=== PATIENT | female | born 1980 | race Caucasian/White ===

== ENCOUNTER → 2018-03-09 | Outpatient (CLI) | payer OTHER ==
[~2018-03-09] MED LIST: AMOXICILLIN500 MG PO; ATARAX25 MG PO; BACTRIM DS 8001 TA1 PO; CATAFLAM50 MG PO; CIPROFLOXACIN500 MG PO; CLINDAMYCIN HC300 MG PO; CORDROL20 MG PO; DEPAKENE250 M2 PO; DIFLUCAN150 MG PO; HYDROCODONE BIT1 T11 PO; LOMOTIL 0.025 M1 TA1 PO; METFORMIN500 MG PO; MOTRIN600 MG PO; MOTRIN800 MG PO; NAPROSYN500 MG PO; NORCO 5-325 TA1 EACH PO; NORVASC5 MG PO; PERCOCET 325 MG1 TA2 PO; PREDNISONE10 MG PO; TRAMADOL HCL50 MG PO; ULTRAM50 MG PO; VALIUM10 MG PO; VICO10300 PO; VICODIN 5/500 505 MG PO; VITAMIN D1000 IU PO; WELLBUTRIN XL300 MG PO; ZESTRIL10 MG PO; ZITHROMAX250 MG PO
== END | disposition home or self-care (01) ==
LOC: RAD 10:58
DX: R11.10 Vomiting, unspecified (principal); R19.7 Diarrhea, unspecified; I10 Essential (primary) hypertension; E11.9 Type 2 diabetes mellitus without complications; F17.200 Nicotine dependence, unspecified, uncomplicated

== ENCOUNTER 2018-03-20 20:22 | Emergency (ER) | payer OTHER ==
[~2018-03-20] VITALS: Ht 167.6 cm; Wt 99.8 kg
[2018-03-20 20:46] LABS: BASO % 0.2 % (0.0-1.0); EOS # 0.2 10*3/uL (0.0-0.4); EOS % 0.9 % (1.0-4.0); HEMATOCRIT 38.7 % (37.0-47.0); HEMOGLOBIN 13.2 g/dl (12.0-16.0); LYMPH # 2.8 10*3/uL (1.3-4.4); LYMPH % 15.3 % (27.0-41.0); MEAN CELL VOLUME 90.4 fl (81.0-99.0); MEAN CORPUSCULAR HGB 30.8 pg (27.0-31.0); MEAN CORPUSCULAR HGB CONC 34.1 g/dl (33.0-37.0); MEAN PLATELET VOLUME 9.2 fl (9.6-12.3); MONO # 0.8 10*3/uL (0.1-1.0); MONO % 4.7 % (3.0-9.0); NEUT # 14.1 10*3/uL (2.3-7.9); NEUT % 78.2 % (47.0-73.0); PLATELET COUNT AUTOMATED 259 10*3/uL (130-400); RED BLOOD COUNT 4.28 10*6/uL (4.10-5.10); RED CELL DISTRI WIDTH 13.4 % (0-14.5)
[2018-03-20 20:59] LABS: BUN 6 mg/dl (7-24); CHLORIDE 100 mmol/L (98-107); CREATININE 0.85 mg/dL (0.55-1.02); POTASSIUM 3.4 mmol/L (3.5-5.1); SODIUM 134 mmol/L (136-145)
[2018-03-20 22:48] VITALS: BP 142/80
[2018-03-21] MEDS ORDERED: CLINDAMYCIN HC300 MG PO (12:05)
== END 2018-03-20 22:37 | disposition home or self-care (01) ==
LOC: ED 20:22
PROVIDERS: Emergency Medicine Emergency Medical Services
DX: K04.7 Periapical abscess without sinus (principal); Z88.8 Allergy status to other drugs, medicaments and biological substances

== ENCOUNTER 2018-08-09 22:04 | Emergency (ER) | payer OTHER ==
[~2018-08-09] VITALS: Ht 160 cm; Wt 108.9 kg
--- NOTE | ~2018-08-09 | EKG ---
[place], [place] ELECTROCARDIOGRAM REPORT NAME: CHRISTINA BOB UNIT #: [id number] ROOM: DOCTOR: EPIPHANY DRAFT REPORT BIRTHDATE: [birth year] [facility] Test Date: 2018-08-09 Test Time: 22:53:38 Pat Name: CHRISTINA BOB Department: ER Room: 18 Gender: F Recreation Professor: Suzette Woodward : 1980 Requested By: MERCEDES DOUGLAS Order Number: [id number] Reading MD: Santiago Sebastian MD Measurements Intervals [place] Rate: 93 P: 19 DC: 177 QRS: 26 QRSD: 77 T: 29 QT: 423 QTc: 527 Interpretive Statements Sinus rhythm Low voltage, precordial leads Probable anteroseptal infarct, old Prolonged QT interval Electronically Signed On 08-10-2018 13:56:55 PDT by Santiago Sebastian MD CM:[email or web address]:ELECTROCARDIOGRAM REPORT [id number] MERCEDES SWEET DRAFT REPORT MERCEDES DOUGLAS DO
[2018-08-09 22:27] LABS: BILIRUBIN NEGATIVE (NEGATIVE); BLOOD NEGATIVE (NEGATIVE); CLARITY CLEAR (CLEAR); COLOR YELLOW (YELLOW); GLUCOSE NEGATIVE (NEGATIVE); KETONE NEGATIVE (NEGATIVE); LEUKO ESTERASE NEGATIVE (NEGATIVE); NITRITE NEGATIVE (NEGATIVE); SPECIFIC GRAVITY >= 1.030 (1.005-1.030)
[2018-08-09 22:37] LABS: BASO % 0.2 % (0.0-1.0); EOS # 0.2 10*3/uL (0.0-0.4); EOS % 1.3 % (1.0-4.0); HEMATOCRIT 40.2 % (37.0-47.0); LYMPH % 24.7 % (27.0-41.0); MEAN CELL VOLUME 89.7 fl (81.0-99.0); MEAN CORPUSCULAR HGB 31.3 pg (27.0-31.0); MEAN CORPUSCULAR HGB CONC 34.8 g/dl (33.0-37.0); MEAN PLATELET VOLUME 9.5 fl (9.6-12.3); MONO # 0.6 10*3/uL (0.1-1.0); MONO % 5.1 % (3.0-9.0); NEUT # 8.4 10*3/uL (2.3-7.9); NEUT % 68.4 % (47.0-73.0); PLATELET COUNT AUTOMATED 288 10*3/uL (130-400); RED BLOOD COUNT 4.48 10*6/uL (4.10-5.10); RED CELL DISTRI WIDTH 12.7 % (0-14.5); WHITE BLOOD COUNT 12.3 10*3/uL (4.8-10.8)
[2018-08-09 22:43] LABS: EPITHELIAL CELLS 15-20
[2018-08-09 22:44] LABS: WBC 0-2 wbc/hpf (0-5)
[2018-08-09 22:47] LABS: ACT PARTIAL THROMBO TIME 24.6 SECONDS (20.8-31.5); INTERNATIONAL NORM RATIO 0.9 (2.0-3.5)
[2018-08-09 22:54] LABS: ALBUMIN 3.7 gm/dl (3.1-4.5); ALKALINE PHOSPHATASE 78 U/L (45-117); BUN 10 mg/dl (7-24); CHLORIDE 103 mmol/L (98-107); CREATININE 0.81 mg/dL (0.55-1.02); POTASSIUM 3.9 mmol/L (3.5-5.1); SGOT/AST 34 IU/L (3-35); SGPT/ALT 47 U/L (12-78); SODIUM 137 mmol/L (136-145); TOTAL PROTEIN 8.4 gm/dL (6.4-8.2)
[2018-08-09 22:58] LABS: BETA-HCG, QUANT < 1.0 mIU/mL (1-3); TROPONIN I < 0.015 ng/ml (<0.045)
[2018-08-09] MEDS ORDERED: PREDNISONE50 MG PO (23:39)
[2018-08-09 23:58] VITALS: BP 136/87
== END 2018-08-10 00:08 | disposition home or self-care (01) ==
LOC: ED 22:04
PROVIDERS: Student in an Organized Health Care Education/Training Program
DX: R07.81 Pleurodynia (principal); Z88.8 Allergy status to other drugs, medicaments and biological substances

== ENCOUNTER 2020-01-12 13:53 | Inpatient (IN) | payer OTHER ==
[~2020-01-12] VITALS: Ht 160 cm; Wt 102.1 kg
[~2020-01-12 13:53] MED LIST changes: +PREDNISONE50 MG PO
[2020-01-12 14:08] VITALS: BP 154/97
[2020-01-12 14:50] LABS: BASO % 0.3 % (0.0-1.0); EOS % 0.1 % (1.0-4.0); HEMATOCRIT 39.1 % (37.0-47.0); HEMOGLOBIN 13.2 g/dl (12.0-16.0); LYMPH # 0.3 10*3/uL (1.3-4.4); LYMPH % 2.7 % (27.0-41.0); MEAN CELL VOLUME 90.5 fl (81.0-99.0); MEAN CORPUSCULAR HGB 30.6 pg (27.0-31.0); MEAN CORPUSCULAR HGB CONC 33.8 g/dl (33.0-37.0); MEAN PLATELET VOLUME 9.2 fl (9.6-12.3); MONO # 0.6 10*3/uL (0.1-1.0); MONO % 6.1 % (3.0-9.0); NEUT # 9.4 10*3/uL (2.3-7.9); PLATELET COUNT AUTOMATED 241 10*3/uL (130-400); RED BLOOD COUNT 4.32 10*6/uL (4.10-5.10); RED CELL DISTRI WIDTH 13.4 % (0-14.5); WHITE BLOOD COUNT 10.4 10*3/uL (4.8-10.8)
[2020-01-12 14:53] LABS: ABG BASE EXCESS -0.9 mmol/L (-2.0-2.0); ARTERIAL BLOOD GAS PH 7.421 (7.35-7.45)
[2020-01-12 15:20] LABS: ALBUMIN 3.7 gm/dl (3.1-4.5); ALKALINE PHOSPHATASE 93 U/L (45-117); BUN 7 mg/dl (7-24); CHLORIDE 103 mmol/L (98-107); CREATININE 0.86 mg/dL (0.55-1.02); POTASSIUM 4.1 mmol/L (3.5-5.1); SGOT/AST 58 IU/L (3-35); SGPT/ALT 55 U/L (12-78); SODIUM 135 mmol/L (136-145); TOTAL PROTEIN 8.8 gm/dL (6.4-8.2)
[2020-01-12 16:00] VITALS: BP 159/98
--- NOTE | 2020-01-12 16:00 | NUR ---
A 39, admitted to , under the services of STEFANIE Linder DO with a diagnosis of COPD EXACERBATION. Chief complaint is SHORTNESS OF BREATH. Patient arrived via stretcher from ER. Monitor applied. Initial assessment completed. Vital signs taken and recorded. STEFANIE LINDER DO notified of admission to the unit. Orders received. See assessment for past medical history, medications and allergies. Patient and/or family oriented to unit. [address] visitation policy reviewed. Clothing/patient valuable form completed. URBAN ARTHUR
[2020-01-12 20:00] VITALS: BP 140/101
--- NOTE | 2020-01-12 21:33 | NUR ---
INFORMED KATIE PATIENT IS COUGHING. ORDERS IN PLACE PER WISHES.
--- NOTE | 2020-01-12 22:03 | NUR ---
PATIENT MEDICATED WITH TESSALON PERLE FOR COUGH. WILL MONITOR
[2020-01-13] VITALS: BP 133/82
--- NOTE | 2020-01-13 02:40 | NUR ---
OFFERED PATIENT WARM TEA TO SOOTHE THROAT, PATIENT REFUSED. PATIENT DID ACCEPT POPSICLES.
--- NOTE | 2020-01-13 02:42 | NUR ---
PATIENT MEDICATED WITH TESSALON PERLE FOR COUGH. WILL MONITOR
--- NOTE | 2020-01-13 03:42 | NUR ---
TESSALON PERLE EFFECTIVE FOR COUGH
--- NOTE | 2020-01-13 05:16 | NUR ---
INFORMED THAT TESSALON PERLES ONLY EFFECTIVE FOR A COUPLE OF HOURS. STATED TO PLACE ROBITUSSIN ORDER
--- NOTE | 2020-01-13 05:45 | NUR ---
PATIENT GIVEN ROBITUSSIN FOR COUGH. WILL MONITOR
[2020-01-13 06:07] LABS: BASO % 0.1 % (0.0-1.0); HEMATOCRIT 38.9 % (37.0-47.0); HEMOGLOBIN 12.8 g/dl (12.0-16.0); LYMPH # 0.5 10*3/uL (1.3-4.4); LYMPH % 5.7 % (27.0-41.0); MEAN CELL VOLUME 90.9 fl (81.0-99.0); MEAN CORPUSCULAR HGB 29.9 pg (27.0-31.0); MEAN CORPUSCULAR HGB CONC 32.9 g/dl (33.0-37.0); MEAN PLATELET VOLUME 9.6 fl (9.6-12.3); MONO # 0.3 10*3/uL (0.1-1.0); MONO % 3.8 % (3.0-9.0); NEUT % 89.5 % (47.0-73.0); PLATELET COUNT AUTOMATED 269 10*3/uL (130-400); RED BLOOD COUNT 4.28 10*6/uL (4.10-5.10); RED CELL DISTRI WIDTH 13.6 % (0-14.5); WHITE BLOOD COUNT 8.9 10*3/uL (4.8-10.8)
[2020-01-13 06:32] LABS: ALBUMIN 3.4 gm/dl (3.1-4.5); ALKALINE PHOSPHATASE 72 U/L (45-117); BUN 9 mg/dl (7-24); CHLORIDE 108 mmol/L (98-107); CHOLESTEROL 157 mg/dL (<200); CREATININE 0.94 mg/dL (0.55-1.02); HDL CHOLESTEROL 40 mg/dl (40-60); LDL CHOLESTEROL 99 mg/dL (9-159); PHOSPHOROUS 2.5 mg/dL (2.5-4.9); POTASSIUM 3.6 mmol/L (3.5-5.1); SGOT/AST 61 IU/L (3-35); SGPT/ALT 52 U/L (12-78); SODIUM 138 mmol/L (136-145); TOTAL PROTEIN 8.3 gm/dL (6.4-8.2); TRIGLYCERIDES 89 mg/dl (<150); VLDL CHOLESTEROL 18 mg/dL (6-40)
[2020-01-13 06:38] LABS: ACT PARTIAL THROMBO TIME 29.9 SECONDS (20.0-32.1); FREE T4 0.97 ng/dl (0.76-1.46); THYROID STIM HORMONE (HS) 0.613 uIU/ml (0.358-4.75)
[2020-01-13 07:06] LABS: VITAMIN D, 25-HYDROXY 21.2 ng/mL (30-100)
[2020-01-13 08:00] VITALS: BP 128/82
[2020-01-13 12:00] VITALS: BP 123/91
--- NOTE | 2020-01-13 14:21 | NUR ---
PT C/O OF RIB PAIN FRO COUGHING, PAIN RATING 5/10 PRN NORCO GIVEN PER ORDER
--- NOTE | 2020-01-13 15:16 | NUR ---
PT RESTING IN BED WITH EYES CLOSED NO COMPLAINTS AT THIS TIME
[2020-01-13 16:00] VITALS: BP 140/94
[2020-01-13 20:00] VITALS: BP 138/90
--- NOTE | 2020-01-13 21:28 | NUR ---
PATIENT MEDICATED WITH NORCO, ROBITUSSIN, TESSALON PERLE FOR C/O 5/10 RIB AND COUGH. WILL MONITOR
--- NOTE | 2020-01-13 22:28 | NUR ---
NORCO EFFECTIVE FOR PAIN. ROBITUSSIN AND TESSALON PERLE SOMEWHAT EFFECTIVE, COUGH MINIMAL AT THIS POINT
[2020-01-14] VITALS: BP 149/94
--- NOTE | 2020-01-14 01:36 | NUR ---
PATIENT MEDICATED WITH NORCO/ROBITUSSIN ABD TESSALON PERLE FOR C/O 5/10 RIB PAIN FROM COUGHING. WILL MONITOR
--- NOTE | 2020-01-14 02:36 | NUR ---
PACHECO/RICKI/CHARLES ORR EFFECTIVE
--- NOTE | 2020-01-14 08:30 | NUR ---
IN PT ROOM AT THIS TIME. PT IS NO LONGER ON NC, SHE IS ON RA AND STATES THAT SHE HAS FELT FINE BEING ON RA. SHE DOES COMPLAIN OF BACK PAIN DUE TO COUGHING AND WANTS SOMETHING FOR PAIN AND TESSELON PEARLS. PT HAS NO OTHER COMPLAINTS AT THIS TIME, CALL LIGHT IS WITHIN REAH, WILL CONTINUE TO MONITOR
--- NOTE | 2020-01-14 09:13 | NUR ---
PT REQUESTING SOMETHING FOR PAIN, PAIN IS IN HER RIBS AND LOWER BACK AND SHE RATES IT A 7/10. PRN NORCO PO IS GIVEN AT THIS TIME ALONG WITH TESSALON PEARLS PER PT REQUEST
--- NOTE | 2020-01-14 11:00 | NUR ---
IN PT ROOM TO RE-ASSESS AFTER GIVING THE NORCO, PT IS SLEEPING. CALL LIGHT WITHIN REACH, WILL CONTINUE TO MONITOR
[2020-01-14 12:00] VITALS: BP 137/92
--- NOTE | 2020-01-14 12:37 | NUR ---
PT WANTS SOMETHING FOR HEARTBURN, CALLED DR GOMEZ AND HE STATES HE WILL PUT ORDER IN
--- NOTE | 2020-01-14 13:08 | NUR ---
PT STATES SHE HAS HEART BURN. PRN TUMS PO IS GIVEN AT THIS TIME
--- NOTE | 2020-01-14 14:30 | NUR ---
IN PT ROOM TO RE-ASSES PT AND SHE IS SLEEPING, WILL CONTINUE TO MONITOR
[2020-01-14 16:00] VITALS: BP 152/96
[2020-01-14 20:00] VITALS: BP 156/111
--- NOTE | 2020-01-14 22:29 | NUR ---
PATIENT MEDICATED WITH NORCO/ROBITUSSIN/TESSALON PERLE FOR C/O PAIN 5/10 FROM COUGHING. WILL MONITOR
--- NOTE | 2020-01-14 23:29 | NUR ---
PACHECO/RICKI/CHARLES ORR EFFECTIVE
[2020-01-15] VITALS: BP 144/77
--- NOTE | 2020-01-15 07:45 | NUR ---
PT GIVEN PRN MEDS FOR COUGH AND PAIN WILL REASSESS FOR EFFECTIVENESS. LILIAN LOZANO SPNRCC
[2020-01-15 08:00] VITALS: BP 158/86
--- NOTE | 2020-01-15 08:19 | NUR ---
CHRISTINA BOB [id number] Please refer to the physician's history and physical for past medical history, comorbid conditions, and allergies. Diagnosis: COPD EXACERBATION Marc Score: 22,LOW OR NO RISK WOUND DESCRIPTIONS: WOUND #1 LEFT BREAST SCAR TISSUE NOTED AT TIME OF ASSESSMENT. PATIENT STATES SHE HAS HAD THIS AREA SINCE 2016 AND HAS HAD SEEN A SURGEON IN [place] FOR AT LEAST TWO SURGERYS. NO DRAINAGE NOTED AT TIME OF ASSESSMENT. PATIENT DENIED PAIN AT TIME OF ASSESSMENT. PATIENT STATES THAT SHE WILL FOLLOW UP IN [place] IF NEEDED. PATIENT REFUSED ASSESSMENT OF WOUND #2 LEFT LOWER ABD. PATIENT STATES SHE WILL CARE FOR THIS AREA HERSELF. Surface the patient is resting on: Position Pro SKIN PREVENTION RECOMMENDATION: 1. Pressure redistribution support surface as appropriate 2. Elevate heels 3. Remove boots/TEDS every shift and reapply 4. Head of bed 30 degrees as tolerated 5. Assess nutrition and hydration 6. Manage moisture 7. Avoid the use of containment devices while in bed 8. Use absorptive products on surfaces limit layers of linens on bed 9. Turn and reposition every 1-2 hours in bed and every 1 hour in chair as tolerated 10. Weight shifts every 15 minutes while up in chair 11. Offloading with pillows or device to keep heels elevated off bed 12. Monitor skin at least every shift 13. Inspect under medical devices twice a day
--- NOTE | 2020-01-15 08:45 | NUR ---
PRN MEDS WERE EFFECTIVE ON PT COUGH AND PAIN. LILIAN HERRING
--- NOTE | 2020-01-15 09:00 | NUR ---
Emergency Veterinary Technician in to talk to patient. Patient states lives at home with . There are no steps in the home. Physician: niurka tom Pharmacy: Home health services: none Patient's level of ADLs: INDEPENDENT Patient has working utilities: all workibg DME: none Follow-up physician's appointment after d/c: will be made by hospitalist nurse director upon discharge Does patient want to access PORTAL?: no Discharge plan discussed with patient, she states she lives at home with family, is independent in adls and ambulation, works, drives, she states she will return home when medically stable and denies any home needs, case management will follow. JUSTINO MELLO
[2020-01-15] MEDS ORDERED: PREDNISONE10 MG PO (09:58)
[2020-01-15] MEDS ORDERED: VITAMIN D32000 UNI1 PO (09:58)
[2020-01-15] MEDS ORDERED: AVPAK AZITHROM250 MG PO (09:58)
[2020-01-15] MEDS ORDERED: OMNICEF300 MG PO (09:58)
--- NOTE | 2020-01-15 10:00 | NUR ---
PT SITTING UP IN BED PLAYING ON LAPTOP, WILL CONTINUE TO MONITOR.
--- NOTE | 2020-01-15 11:30 | NUR ---
Discharge instructions reviewed with patient. Patient receptive and verbalizes understanding. Follow-up care arranged. Written instructions given to patient. LILIAN HERRING
--- NOTE | 2020-01-15 11:43 | NUR ---
Pt dc in care of self via wheelchair.
== END 2020-01-15 11:43 | disposition home or self-care (01) | DRG 871 ==
LOC: ED 13:53 → EDHOLD 15:45 → 4E 15:57
PROVIDERS: Emergency Medicine; ADMIT Family Medicine
DX: A41.9 Sepsis, unspecified organism (principal); J18.9 Pneumonia, unspecified organism; J44.1 Chronic obstructive pulmonary disease with (acute) exacerbation; E87.1 Hypo-osmolality and hyponatremia; J44.0 Chronic obstructive pulmonary disease with (acute) lower respiratory infection; R73.9 Hyperglycemia, unspecified; F17.210 Nicotine dependence, cigarettes, uncomplicated; R73.03 Prediabetes; I10 Essential (primary) hypertension; E66.01 Morbid (severe) obesity due to excess calories; Z88.8 Allergy status to other drugs, medicaments and biological substances; Z90.49 Acquired absence of other specified parts of digestive tract; Z90.710 Acquired absence of both cervix and uterus; Z79.52 Long term (current) use of systemic steroids; Z71.6 Tobacco abuse counseling; Z68.39 Body mass index [BMI] 39.0-39.9, adult

== ENCOUNTER 2021-06-27 11:01 | Emergency (ER) | payer OTHER ==
[~2021-06-27] VITALS: Ht 160 cm; Wt 118.8 kg
[~2021-06-27 11:01] MED LIST changes: +AVPAK AZITHROM250 MG PO; +OMNICEF300 MG PO; +VITAMIN D32000 UNI1 PO
[2021-06-27 11:31] LABS: BASO # 0.1 10*3/uL (0.0-0.1); BASO % 0.4 % (0.0-1.0); EOS # 0.2 10*3/uL (0.0-0.4); EOS % 1.6 % (1.0-4.0); HEMATOCRIT 40.3 % (37.0-47.0); LYMPH # 2.6 10*3/uL (1.3-4.4); LYMPH % 21.3 % (27.0-41.0); MEAN CELL VOLUME 88.4 fl (81.0-99.0); MEAN CORPUSCULAR HGB 29.4 pg (27.0-31.0); MEAN CORPUSCULAR HGB CONC 33.3 g/dl (33.0-37.0); MEAN PLATELET VOLUME 9.3 fl (9.6-12.3); MONO # 0.5 10*3/uL (0.1-1.0); MONO % 3.9 % (3.0-9.0); NEUT % 72.2 % (47.0-73.0); PLATELET COUNT AUTOMATED 336 10*3/uL (130-400); RED BLOOD COUNT 4.56 10*6/uL (4.10-5.10); RED CELL DISTRI WIDTH 12.8 % (0-14.5); WHITE BLOOD COUNT 12.4 10*3/uL (4.8-10.8)
[2021-06-27] MEDS ORDERED: CETIRIZINE HYDR10 MG PO (11:38)
[2021-06-27] MEDS ORDERED: ATORVASTATIN CA20 M1 PO (11:38)
[2021-06-27] MEDS ORDERED: METFORMIN XR500 MG PO (11:39)
[2021-06-27] MEDS ORDERED: TRULICITY0.75 MG/0. SC (11:39)
[2021-06-27 11:51] LABS: ALBUMIN 3.5 gm/dl (3.1-4.5); ALKALINE PHOSPHATASE 107 U/L (45-117); BUN 5 mg/dl (7-24); CHLORIDE 105 mmol/L (98-107); CREATININE 0.71 mg/dL (0.55-1.02); POTASSIUM 3.8 mmol/L (3.5-5.1); SGOT/AST 39 IU/L (3-35); SGPT/ALT 42 U/L (12-78); SODIUM 137 mmol/L (136-145); TOTAL PROTEIN 8.5 gm/dL (6.4-8.2)
[2021-06-27 11:55] LABS: TROPONIN I < 0.015 ng/ml (<0.045)
[2021-06-27 12:15] VITALS: BP 147/108
[2021-06-27] MEDS ORDERED: ZESTORETIC 10-1 EACH PO (12:41)
== END 2021-06-27 13:02 | disposition home or self-care (01) ==
LOC: ED 11:01
PROVIDERS: Emergency Medicine
DX: I10 Essential (primary) hypertension (principal); J44.9 Chronic obstructive pulmonary disease, unspecified; E66.01 Morbid (severe) obesity due to excess calories; F17.200 Nicotine dependence, unspecified, uncomplicated; Z88.8 Allergy status to other drugs, medicaments and biological substances; Z79.899 Other long term (current) drug therapy; Z79.2 Long term (current) use of antibiotics; Z90.711 Acquired absence of uterus with remaining cervical stump; Z90.49 Acquired absence of other specified parts of digestive tract

== ENCOUNTER 2021-07-22 13:04 | Emergency (ER) | payer OTHER ==
[~2021-07-22] VITALS: Wt 113.4 kg
[~2021-07-22 13:04] MED LIST changes: +ATORVASTATIN CA20 M1 PO; +CETIRIZINE HYDR10 MG PO; +METFORMIN XR500 MG PO; +TRULICITY0.75 MG/0. SC; +ZESTORETIC 10-1 EACH PO
[2021-07-22 13:19] VITALS: BP 138/78
[2021-07-22 14:38] LABS: BASO % 0.3 % (0.0-1.0); EOS # 0.2 10*3/uL (0.0-0.4); EOS % 1.5 % (1.0-4.0); HEMATOCRIT 38.7 % (37.0-47.0); LYMPH # 1.8 10*3/uL (1.3-4.4); LYMPH % 13.6 % (27.0-41.0); MEAN CELL VOLUME 89.2 fl (81.0-99.0); MEAN CORPUSCULAR HGB 30.2 pg (27.0-31.0); MEAN CORPUSCULAR HGB CONC 33.9 g/dl (33.0-37.0); MEAN PLATELET VOLUME 9.2 fl (9.6-12.3); MONO # 0.6 10*3/uL (0.1-1.0); MONO % 4.7 % (3.0-9.0); NEUT # 10.3 10*3/uL (2.3-7.9); NEUT % 79.4 % (47.0-73.0); PLATELET COUNT AUTOMATED 326 10*3/uL (130-400); RED BLOOD COUNT 4.34 10*6/uL (4.10-5.10); RED CELL DISTRI WIDTH 13.3 % (0-14.5)
[2021-07-22 14:53] LABS: ALBUMIN 3.5 gm/dl (3.1-4.5); ALKALINE PHOSPHATASE 102 U/L (45-117); BUN 4 mg/dl (7-24); CHLORIDE 104 mmol/L (98-107); POTASSIUM 3.8 mmol/L (3.5-5.1); SGOT/AST 46 IU/L (3-35); SGPT/ALT 50 U/L (12-78); SODIUM 135 mmol/L (136-145); TOTAL PROTEIN 8.7 gm/dL (6.4-8.2)
[2021-07-22] MEDS ORDERED: ZITHROMAX250 MG PO (16:03)
[2021-07-22] MEDS ORDERED: PREDNISONE20 M1 PO (16:03)
== END 2021-07-22 16:01 | disposition home or self-care (01) ==
LOC: ED 13:04
PROVIDERS: Physician Assistant
DX: J45.909 Unspecified asthma, uncomplicated (principal); Z20.822 Contact with and (suspected) exposure to COVID-19; F17.200 Nicotine dependence, unspecified, uncomplicated; Z88.8 Allergy status to other drugs, medicaments and biological substances; Z79.899 Other long term (current) drug therapy

== ENCOUNTER 2023-02-12 13:21 | Emergency (ER) | payer OTHER ==
[~2023-02-12] VITALS: Ht 157.4 cm; Wt 110.7 kg
[~2023-02-12 13:21] MED LIST changes: +PREDNISONE20 M1 PO
[2023-02-12] MEDS ORDERED: NEURONTIN300 MG PO (13:52)
[2023-02-12] MEDS ORDERED: TOUJEO SOL300 UNIT/1 SC (13:53)
[2023-02-12] MEDS ORDERED: VRAYLAR3 MG PO (13:55)
[2023-02-12] MEDS ORDERED: CEFUROXIME AXE250 MG PO (13:56)
[2023-02-12] MEDS ORDERED: JARDIANCE25 MG PO (13:57)
[2023-02-12] MEDS ORDERED: LISINOPRIL30 MG PO (13:57)
[2023-02-12] MEDS ORDERED: ROSUVASTATIN CAL5 MG PO (13:58)
[2023-02-12] MEDS ORDERED: VENTOLIN 02.5 MG/3 M INH (13:59)
[2023-02-12 14:15] LABS: BASO # 0.1 10*3/uL (0.0-0.1); BASO % 0.5 % (0.0-1.0); EOS # 0.2 10*3/uL (0.0-0.4); EOS % 1.3 % (1.0-4.0); HEMATOCRIT 41.6 % (37.0-47.0); LYMPH # 3.5 10*3/uL (1.3-4.4); LYMPH % 23.8 % (27.0-41.0); MEAN CELL VOLUME 92.9 fl (81.0-99.0); MEAN CORPUSCULAR HGB 31.5 pg (27.0-31.0); MEAN CORPUSCULAR HGB CONC 33.9 g/dl (33.0-37.0); MEAN PLATELET VOLUME 9.5 fl (9.6-12.3); MONO # 0.7 10*3/uL (0.1-1.0); MONO % 4.5 % (3.0-9.0); PLATELET COUNT AUTOMATED 299 10*3/uL (130-400); RED BLOOD COUNT 4.48 10*6/uL (4.10-5.10); RED CELL DISTRI WIDTH 13.9 % (0-14.5); WHITE BLOOD COUNT 14.5 10*3/uL (4.8-10.8)
[2023-02-12 14:35] LABS: ACT PARTIAL THROMBO TIME 29.7 SECONDS (20.0-32.1); ALKALINE PHOSPHATASE 93 U/L (46-116); BETA-HCG, QUANT < 3.0 mIU/mL (0-10); BUN 14 mg/dl (9-23); CHLORIDE 105 mmol/L (98-107); INTERNATIONAL NORM RATIO 0.9 (2.0-3.5); LIPASE 62 U/L (12-53); SGPT/ALT 47 U/L (10-49); TOTAL PROTEIN 7.9 gm/dL (6.0-8.0)
[2023-02-12 15:38] VITALS: BP 109/67
== END 2023-02-12 16:36 | disposition home or self-care (01) ==
LOC: ED 13:21
PROVIDERS: Emergency Medicine
DX: I47.1 Supraventricular tachycardia (principal); Z88.8 Allergy status to other drugs, medicaments and biological substances; Z79.899 Other long term (current) drug therapy; Z90.710 Acquired absence of both cervix and uterus; Z90.49 Acquired absence of other specified parts of digestive tract; Z87.891 Personal history of nicotine dependence

== ENCOUNTER 2023-04-01 09:26 | Emergency (ER) | payer OTHER ==
[~2023-04-01] VITALS: Ht 157.4 cm; Wt 115.7 kg
[~2023-04-01 09:26] MED LIST changes: +CEFUROXIME AXE250 MG PO; +JARDIANCE25 MG PO; +LISINOPRIL30 MG PO; +NEURONTIN300 MG PO; +ROSUVASTATIN CAL5 MG PO; +TOUJEO SOL300 UNIT/1 SC; +VENTOLIN 02.5 MG/3 M INH; +VRAYLAR3 MG PO
[2023-04-01 10:08] LABS: BASO # 0.1 10*3/uL (0.0-0.1); BASO % 0.4 % (0.0-1.0); EOS # 0.2 10*3/uL (0.0-0.4); EOS % 1.2 % (1.0-4.0); HEMATOCRIT 44.6 % (37.0-47.0); LYMPH # 3.1 10*3/uL (1.3-4.4); LYMPH % 22.6 % (27.0-41.0); MEAN CELL VOLUME 93.1 fl (81.0-99.0); MEAN CORPUSCULAR HGB 30.9 pg (27.0-31.0); MEAN CORPUSCULAR HGB CONC 33.2 g/dl (33.0-37.0); MEAN PLATELET VOLUME 9.5 fl (9.6-12.3); MONO # 0.6 10*3/uL (0.1-1.0); MONO % 4.3 % (3.0-9.0); NEUT # 9.8 10*3/uL (2.3-7.9); NEUT % 70.7 % (47.0-73.0); PLATELET COUNT AUTOMATED 327 10*3/uL (130-400); RED BLOOD COUNT 4.79 10*6/uL (4.10-5.10); RED CELL DISTRI WIDTH 13.6 % (0-14.5); WHITE BLOOD COUNT 13.8 10*3/uL (4.8-10.8)
[2023-04-01 10:22] LABS: ACT PARTIAL THROMBO TIME 30.8 SECONDS (20.0-32.1)
[2023-04-01 10:24] VITALS: BP 99/69
[2023-04-01 10:27] LABS: ALKALINE PHOSPHATASE 90 U/L (46-116); BETA-HCG, QUANT < 3.0 mIU/mL (0-10); BUN 12 mg/dl (9-23); CHLORIDE 104 mmol/L (98-107); LIPASE 49 U/L (12-53); POTASSIUM 3.8 mmol/L (3.4-5.1); SGPT/ALT 41 U/L (10-49)
[2023-04-01] MEDS ORDERED: ZITHROMAX250 MG PO (11:18)
== END 2023-04-01 11:29 | disposition home or self-care (01) ==
LOC: ED 09:26
PROVIDERS: Emergency Medicine
DX: I47.1 Supraventricular tachycardia (principal); J02.9 Acute pharyngitis, unspecified; Z88.8 Allergy status to other drugs, medicaments and biological substances; Z79.899 Other long term (current) drug therapy; Z90.49 Acquired absence of other specified parts of digestive tract; Z90.710 Acquired absence of both cervix and uterus; Z87.891 Personal history of nicotine dependence

== ENCOUNTER 2024-02-22 02:02 | Emergency (ER) | payer OTHER ==
[2024-02-22 02:19] VITALS: BP 126/91
[2024-02-22 02:46] LABS: BASO # 0.1 10*3/uL (0.0-0.1); BASO % 0.3 % (0.0-1.0); EOS # 0.3 10*3/uL (0.0-0.4); EOS % 1.8 % (1.0-4.0); HEMATOCRIT 39.7 % (37.0-47.0); LYMPH # 3.9 10*3/uL (1.3-4.4); LYMPH % 25.5 % (27.0-41.0); MEAN CELL VOLUME 92.5 fl (81.0-99.0); MEAN CORPUSCULAR HGB 30.3 pg (27.0-31.0); MEAN CORPUSCULAR HGB CONC 32.7 g/dl (33.0-37.0); MONO # 0.8 10*3/uL (0.1-1.0); MONO % 5.1 % (3.0-9.0); NEUT # 10.3 10*3/uL (2.3-7.9); NEUT % 66.7 % (47.0-73.0); PLATELET COUNT AUTOMATED 363 10*3/uL (130-400); RED BLOOD COUNT 4.29 10*6/uL (4.10-5.10); RED CELL DISTRI WIDTH 14.4 % (0-14.5); WHITE BLOOD COUNT 15.4 10*3/uL (4.8-10.8)
[2024-02-22 03:05] LABS: BILIRUBIN Negative (Negative); BLOOD Trace-Lysed (Negative); CLARITY Cloudy (Clear); COLOR Yellow (Yellow); GLUCOSE Negative (Negative); KETONE Negative (Negative); LEUKO ESTERASE 3+ (Negative); NITRITE Negative (Negative); PH 5.5 (4.5-8.0); SPECIFIC GRAVITY 1.015 (1.001-1.030); UROBILINOGEN 0.2 E.U./dl (0.0-1.0)
[2024-02-22 03:07] LABS: ALKALINE PHOSPHATASE 78 U/L (46-116); BUN 10 mg/dl (9-23); CHLORIDE 100 mmol/L (98-107); LIPASE 45 U/L (12-53); SGPT/ALT 35 U/L (5-49); TOTAL PROTEIN 8.1 gm/dL (6.0-8.0)
[2024-02-22 03:17] LABS: EPITHELIAL CELLS TNTC; WBC 31-40 wbc/hpf (0-5)
[2024-02-22 03:18] LABS: BACTERIA 1+
[2024-02-22] MEDS ORDERED: HYDROmorphONE Hydrochloride 1 MG/ML SYR IV ONE (06:00)
[2024-02-22] MEDS ORDERED: Ondansetron Hydrochloride 4 MG/2 ML VIAL IV ONE (06:00)
== END 2024-02-22 06:30 | disposition home or self-care (01) ==
LOC: ED 02:02
PROVIDERS: Internal Medicine
DX: R16.0 Hepatomegaly, not elsewhere classified (principal); N83.8 Other noninflammatory disorders of ovary, fallopian tube and broad ligament; D72.829 Elevated white blood cell count, unspecified; I12.9 Hypertensive chronic kidney disease with stage 1 through stage 4 chronic kidney disease, or unspecified chronic kidney disease; N18.31 Chronic kidney disease, stage 3a; F41.9 Anxiety disorder, unspecified; F31.9 Bipolar disorder, unspecified; J44.9 Chronic obstructive pulmonary disease, unspecified; Z88.8 Allergy status to other drugs, medicaments and biological substances; Z90.49 Acquired absence of other specified parts of digestive tract; Z90.710 Acquired absence of both cervix and uterus; Z98.890 Other specified postprocedural states; F17.200 Nicotine dependence, unspecified, uncomplicated